=== PATIENT | male | born 1975 ===

== ENCOUNTER 2021-05-22 11:55 | Emergency (ER) | payer BC ==
[2021-05-22] MEDS ORDERED: oxyCODONE /ACETAMINOPHEN 5-325MG TAB PO ONE (12:25)
--- NOTE | 2021-05-22 12:35 | Emergency Department Report ---
HPI - General Chief Complaint: Fall Time Seen by Provider: 05/22/21 12:23 - HPI HPI: This is a 45-year-old -[place] male who presents to the emergency department with complaint of pain from the right elbow up through the mid upper arm after the patient fell about 10 feet through the floor of his attic. He says that he fell backwards onto his back, but denies hitting his head or any loss of consciousness. He denies any headache, neck pain, back pain or pain anywhere else except for the elbow and upper arm. He has not taken anything for symptoms prior to presentation. The pain is currently 7 out of 10 and throbbing. It worsens with any movement of the arm. ED Past Medical Hx - Past Medical History Previous Medical History?: No - Surgical History Past Surgical History?: Yes Additional Surgical History: LEFT ACHILLES - Social History Smoking Status: Never Smoker Substance Use Type: None - Medications Home Medications: Home Medications Medication Instructions Recorded Confirmed Last Taken Type HYDROcodone/APAP 5-325 [[place] 1 each PO Q6HR PRN #12 tablet 05/22/21 Unknown Rx 5/325] ED Review of Systems ROS: Stated complaint: RT ARM BROKEN Other details as noted in HPI Comment: All other systems reviewed and negative Constitutional: denies: chills, fever Eyes: denies: eye pain, vision change ENT: denies: ear pain, throat pain Respiratory: denies: cough, shortness of breath Cardiovascular: denies: chest pain, palpitations Gastrointestinal: denies: abdominal pain, vomiting Genitourinary: denies: dysuria, discharge Musculoskeletal: arthralgia, myalgia. denies: back pain Skin: denies: rash, lesions Neurological: denies: headache, weakness Physical Exam - Physical Exam Vital Signs: Vital Signs 05/22/21 05/22/21 12:13 12:26 Temperature 98.5 F Pulse Rate 95 H Respiratory 18 16 Rate Blood Pressure 141/88 [Right] O2 Sat by Pulse 100 Oximetry Physical Exam: GENERAL: The patient is well-developed well-nourished. HENT: Normocephalic. Atraumatic. Patient has moist mucous membranes. EYES: Extraocular motions are intact. NECK: Supple. Trachea is midline. CHEST/LUNGS: Clear to auscultation. There is no respiratory distress noted. HEART/CARDIOVASCULAR: Regular. There is no tachycardia. There is no murmur. ABDOMEN: Abdomen is soft, nontender. Patient has normal bowel sounds. There is no abdominal distention. SKIN: Skin is warm and dry. There is a large area of abrasions to the inside of the right bicep. NEURO: The patient is awake, alert, and oriented. The patient is cooperative. The patient has no focal neurologic deficits. Normal speech. MUSCULOSKELETAL: There is tenderness to palpation along the right upper extremity from the proximal forearm to the mid bicep. Radial pulse +2/4 and capillary refill less than 2 seconds to the affected right upper extremity. There is no limitation range of motion, but patient has increased pain with movement. ED Course Vital Signs 05/22/21 05/22/21 12:13 12:26 Temperature 98.5 F Pulse Rate 95 H Respiratory 18 16 Rate Blood Pressure 141/88 [Right] O2 Sat by Pulse 100 Oximetry ED Medical Decision Making - Radiology Data Radiology results: image reviewed interpreted by me: X-ray of the right elbow and humerus does not show any fracture, dislocation, foreign body, subcutaneous gas, or any other acute process. - Medical Decision Making This patient fell through the attic floor onto the floor below and his only complaint was pain to the right elbow and upper arm. He is neurovascularly intact. There is a large area of abrasions inside of the right bicep. He was given a tetanus vaccination and a dose of oral analgesia. X-rays were done of the right elbow and right forearm that did not show any obvious fracture, dislocation, or any other acute process. Given the mechanism of his injury, as well as the amount of the patient's discomfort, he was placed in a posterior right long-arm splint and he will be given referrals for orthopedist. The patient was checked after splint placement and he still remains neurovascularly intact. Critical Care Time: No Critical care attestation.: If time is entered above; I have spent that time in minutes in the direct care of this critically ill patient, excluding procedure time. ED Disposition Clinical Impression: Right arm pain, Right elbow pain Fall Qualifiers: Encounter type: initial encounter Qualified Code(s): W19.XXXA - Unspecified fall, initial encounter Disposition: - TO HOME OR SELFCARE Is pt being admited?: No Condition: Stable Instructions: Fall Prevention in the Home, Adult, [id number], Elbow Contusion, Joint Pain Additional Instructions: Please follow-up with your primary care physician in the next few days. Please follow-up with an orthopedist. I have given you a referral for 2 different local orthopedic groups, Dr. Kendrick and [facility]. You have been prescribed a medication that is sedating and therefore should not be taken prior to driving, working, and responsible for children and in no way should be mixed with alcohol of any quantity. Return to the emergency department with any worsening of your symptoms, new or concerning symptoms not addressed during this current emergency department visit, or with any acute distress. Prescriptions: HYDROcodone/APAP 5-325 [[place] 5/325] 1 each PO Q6HR PRN #12 tablet PRN Reason: Pain Referrals: ALDO KENDRICK MD [Staff Physician] - 3-5 Days [facility] [Provider Group] - 3-5 Days Time of Disposition: 14:31
[2021-05-22] MEDS ORDERED: TETANUS,DIPH,PERTUSS(ACELL) VACCINE 0.5 ML SYRINGE IM ONE (14:29)
[2021-05-22 15:23] VITALS: BP 126/76
== END 2021-05-22 15:23 | disposition home or self-care (01) ==
LOC: ED 11:55
DX: M25.521 Pain in right elbow (principal); M79.601 Pain in right arm; Z98.890 Other specified postprocedural states; Z79.899 Other long term (current) drug therapy; W17.89XA Other fall from one level to another, initial encounter; Y93.89 Activity, other specified; Y92.89 Other specified places as the place of occurrence of the external cause; Y99.8 Other external cause status
CPT/HCPCS: 90471; 90715